=== PATIENT | male | born 1990 | race Caucasian/White ===

== ENCOUNTER 2016-11-21 10:02 | Emergency (ER) | payer BC, MEDICAID ==
[2016-11-21 10:26] VITALS: BP 145/88
--- NOTE | 2016-11-21 11:05 | UC ---
General HPI - HPI Summary HPI Summary: patient is out of medications that he was discharged from the rehab facitlity with. I does not have an appointment until 11/24. after talking with the patient. there is only 2 medications that he actually ran out of Clonodine and Praxosin. I will fill them today to get him to his next appointment. - History of Current Complaint Chief Complaint: UCMedRefill Stated Complaint: MED REFILL Time Seen by Provider: 11/21/16 10:35 Hx Obtained From: Patient Onset/Duration: Sudden Onset, Lasting Days - Allergy/Home Medications Allergies/Adverse Reactions: Allergies Allergy/AdvReac Type Severity Reaction Status Date / Time No Known Allergies Allergy Verified 11/21/16 10:30 Home Medications: Home Medications Gabapentin CAP(*) [Neurontin 400 mg CAP(*)] 400 mg PO TID 11/21/16 [History Confirmed 11/21/16] Naltrexone (NF) 50 mg PO DAILY 11/21/16 [History Confirmed 11/21/16] Naltrexone [Vivitrol] 380 mg IM ONCE 11/21/16 [History Confirmed 11/21/16] OXcarbazepine TAB(*) [Trileptal TAB(*)] 300 mg PO BID 11/21/16 [History Confirmed 11/21/16] Prazosin CAP* [Minipress CAP*] 1 mg PO BEDTIME 11/21/16 [History Confirmed 11/21] QUEtiapine TAB* [SEROquel TAB*] 75 mg PO BEDTIME 11/21/16 [History Confirmed 02/02] Tizanidine HCl [Zanaflex] 2 mg PO TID PRN 11/21/16 [History Confirmed 11/21/16] cloNIDine TAB* [Catapres TAB*] 0.1 mg PO QID PRN 11/21/16 [History Confirmed 02/02] diPHENhydraMINE PO* [Benadryl PO*] 50 - 75 mg PO BEDTIME PRN 11/21/16 [History Confirmed 11/21/16] PMH/Surg Hx/FS Hx/Imm Hx Previously Healthy: Yes Endocrine History Of: Denies: Diabetes Respiratory History Of: Reports: Asthma Psychological History Of: Reports: Anxiety - Surgical History Surgical History: Yes Surgery Procedure, Year, and Place: surgery X2 to left knee, hernia repair. 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 Smoking Status (MU): Light Every Day Tobacco Smoker Type: Cigarettes Amount Used/How Often: 1.5 packs/day Have You Smoked in the Last Year: Yes Household Exposure Type: Cigarettes - Immunization History Most Recent Influenza Vaccination: never received Most Recent Tetanus Shot: 2011 Most Recent Pneumonia Vaccination: never recieved Review of Systems Constitutional: Negative Skin: Negative Eyes: Negative ENT: Negative Respiratory: Negative Cardiovascular: Negative Gastrointestinal: Negative Genitourinary: Negative Motor: Negative Neurovascular: Negative Musculoskeletal: Negative Neurological: Negative Psychological: Other - addition issues All Other Systems Reviewed And Are Negative: Yes Physical Exam Triage Information Reviewed: Yes Appearance: Well-Appearing, No Pain Distress, Well-Nourished Vital Signs: Initial Vital Signs Temp 99.0 F 11/21/16 10:19 Pulse 94 11/21/16 10:19 Resp 16 11/21/16 10:19 BP 145/88 11/21/16 10:19 Pulse Ox 99 11/21/16 10:19 Vital Signs Reviewed: Yes Eye Exam: Normal Eyes: Positive: Conjunctiva Clear ENT Exam: Normal ENT: Positive: Normal ENT inspection, Pharynx normal, Pharyngeal erythema, TMs normal Dental Exam: Normal Neck exam: Normal Neck: Positive: Supple, Nontender, No Lymphadenopathy Respiratory Exam: Normal Respiratory: Positive: Chest non-tender, Lungs clear, Normal breath sounds Cardiovascular Exam: Normal Cardiovascular: Positive: RRR, No Murmur, Pulses Normal Abdominal Exam: Normal Abdomen Description: Positive: Nontender, No Organomegaly, Soft Bowel Sounds: Positive: Present Musculoskeletal Exam: Normal Musculoskeletal: Positive: Strength Intact, ROM Intact, No Edema Neurological Exam: Normal Neurological: Positive: Alert, Muscle Tone Normal Psychological Exam: Normal Skin Exam: Normal Course/Dx - Course Course Of Treatment: hx obtained, exam performed, medications reviewed. 2 prescriptions ordered. - Differential Dx - Multi-Symptom Provider Diagnoses: medication refill. Depression. Anxiety Discharge - Discharge Plan Condition: Stable Disposition: HOME Prescriptions: Prazosin CAP* [Minipress CAP*] 2 mg PO BEDTIME #7 cap cloNIDine TAB* [Catapres TAB*] 0.1 mg PO QID #28 tab Patient Education Materials: Medicine Refill (ED) Referrals: XENIA Iraheta [Primary Care Provider] - Additional Instructions: Please follow up with Mary for continuation of your medications.
== END 2016-11-21 11:15 | disposition home or self-care (01) ==
LOC: UCCORT 10:02
DX: F33.8 Other recurrent depressive disorders (principal); F41.9 Anxiety disorder, unspecified; J45.909 Unspecified asthma, uncomplicated; I10 Essential (primary) hypertension; F17.210 Nicotine dependence, cigarettes, uncomplicated
CPT/HCPCS: 99212; G0463

== ENCOUNTER 2017-09-07 19:25 | Emergency (ER) | payer BC, MEDICAID ==
[2017-09-07] MEDS ORDERED: NS 0.9% 1000 ML* 2,000 ML IV ONE (21:33)
[2017-09-07] MEDS ORDERED: Morphine INJ* 4 MG/ML 1 ML CARPUJECT IV ONE (21:33)
[2017-09-07] MEDS ORDERED: Metoclopramide IV* 5 MG/ML 2 ML VIAL IV ONE (21:33)
[2017-09-07 22:18] LABS: Hematocrit 42 % (42-52); Hemoglobin 13.8 g/dl (14.0-18.0); Mean Corpuscular HGB Conc 33 g/dl (31-36); Mean Corpuscular Hemoglobin 27 pg (27-31); Mean Corpuscular Volume 82 fL (80-94); Mean Platelet Volume 8 um3 (7.4-10.4); Red Blood Count 5.11 10^6/ul (4.0-5.4); Red Cell Distribution Width 15 % (10.5-15); White Blood Count 5.7 10^3/ul (3.5-10.8)
[2017-09-07 22:24] LABS: ALT 101 U/L (7-52); AST 39 U/L (13-39); Albumin 4.4 g/dL (3.2-5.2); Alkaline Phosphatase 63 U/L (34-104); Anion Gap 10 mmol/L (2-11); BUN/Creatinine Ratio 16.7 (8-20); Blood Urea Nitrogen 12 mg/dL (6-24); CO2 Carbon Dioxide 27 mmol/L (22-32); Calcium 9.8 mg/dL (8.6-10.3); Chloride 98 mmol/L (101-111); EGFR African American 171.1 (>60); Globulin 3.8 g/dL (2-4); Glucose 91 mg/dL (70-100); Lipase < 10 U/L (11.0-82.0); Potassium 3.8 mmol/L (3.5-5.0); Sodium 135 mmol/L (133-145); Total Protein 8.2 g/dL (6.4-8.9)
[2017-09-07 22:28] LABS: Troponin I 0.01 ng/mL (<0.04)
[2017-09-08] MEDS ORDERED: Ondansetron TAB* 4 MG ONE (02:32)
[2017-09-08] MEDS ORDERED: Ondansetron ODT TAB* 4 MG SL ONE (02:53)
[2017-09-08] MEDS ORDERED: Ondansetron ODT TAB* 4 MG PO ONE ×2 (02:55→03:04)
[2017-09-08] MEDS ORDERED: Ondansetron TAB* 4 MG PO ONE (02:56)
[2017-09-08] MEDS ORDERED: Pantoprazole TAB (NF) 40 MG TAB PO ONE (03:04)
--- NOTE | 2017-09-08 03:25 | ED ---
Samra Suarez Emily, scribed for Chris Pepe on 09/07/17 at 2155 . Complex/Multi-Sys Presentation - HPI Summary HPI Summary: This patient is a 27 year old M presenting to [facility] with a chief complaint of nausea and vomiting that began 3 days ago. The patient rates the pain 7/10 in severity. Symptoms aggravated by nothing. Symptoms alleviated by nothing. Patient reports nausea, inability to eat or drink (for 2 days), headache, and abd pain. Patient denies fever and diarrhea. PMHx includes gastroparesis and severe headaches. - History Of Current Complaint Chief Complaint: EDNauseaVomitDiarrh Time Seen by Provider: 09/07/17 21:20 Hx Obtained From: Patient Onset/Duration: Sudden Onset, Lasting Days, Still Present Timing: Days Severity Currently: Moderate Severity Initially: Moderate Associated Signs And Symptoms: Positive: Other - Positive nausea, inability to eat or drink (for 2 days), headache, and abd pain. Negative fever and diarrhea - Allergies/Home Medications Allergies/Adverse Reactions: Allergies Allergy/AdvReac Type Severity Reaction Status Date / Time No Known Allergies Allergy Verified 11/21/16 10:30 PMH/Surg Hx/FS Hx/Imm Hx Previously Healthy: No Endocrine/Hematology History: Denies: Hx Diabetes Respiratory History: Reports: Hx Asthma GI History: Reports: Other GI Disorders - says has "cyclical vomiting syndrome" History: Comment Only: Other Problems/Disorders - cyst in kidney Musculoskeletal History: Reports: Hx Back Problems Neurological History: Reports: Hx Headaches - Severe Psychiatric History: Reports: Hx Anxiety, Hx Substance Abuse Denies: Hx Eating Disorder, Hx Suicide Attempt, Hx of Violent Episodes Against Others - Cancer History Hx Chemotherapy: No Hx Radiation Therapy: No Hx Palliative Cancer Treatment: No - Surgical History Surgery Procedure, Year, and Place: surgery X2 to left knee, hernia repair. Patient stated happened a few years ago Infectious Disease History: No Infectious Disease History: Reports: Hx Hepatitis - states Hep C was diagnosed Denies: Hx Clostridium Difficile, Hx Human Immunodeficiency Virus (HIV), Hx of Known/Suspected MRSA, Hx Shingles, Hx Tuberculosis, Hx Known/Suspected VRE, Hx Known/Suspected VRSA, History Other Infectious Disease, Traveled Outside the [place] in Last 30 Days - Family History Known Family History: Negative: Cardiac Disease, Hypertension - Social History Occupation: Unemployed Lives: Alone Alcohol Use: None Substance Use Type: Reports: Heroin, Marijuana, Other Substance Use Comment - Amount & 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 Negative: Diarrhea Positive: Headache All Other Systems Reviewed And Are Negative: Yes Physical Exam Triage Information Reviewed: Yes Vital Signs On Initial Exam: Initial Vitals Temp Pulse Resp BP Pulse Ox 98.7 F 73 16 139/87 98 09/07/17 19:31 09/07/17 19:31 09/07/17 19:31 09/07/17 19:31 09/07/17 19:31 Vital Signs Reviewed: Yes Appearance: Positive: Well-Appearing, No Pain Distress Skin: Positive: Warm, Skin Color Reflects Adequate Perfusion, Dry Head/Face: Positive: Normal Head/Face Inspection Eyes: Positive: EOMI, BISHOP ENT: Positive: Normal ENT inspection Neck: Positive: Supple, Nontender Respiratory/Lung Sounds: Positive: Clear to Auscultation, Breath Sounds Present Cardiovascular: Positive: RRR, Pulses are Symmetrical in both Upper and Lower Extremities Abdomen Description: Positive: Soft, Other: - Diffuse abd tenderness Bowel Sounds: Positive: Present Musculoskeletal: Positive: Normal, Strength/ROM Intact Neurological: Positive: Normal, Sensory/Motor Intact, Alert, Oriented to Person Place, Time Diagnostics - Vital Signs Vital Signs Temp Pulse Resp BP Pulse Ox 09/07/17 19:31 98.7 F 73 16 139/87 98 - Laboratory Lab Results: Lab Results 09/07/17 09/07/17 09/07/17 Range/Units 22:00 22:00 22:00 WBC 5.7 (3.5-10.8) 10^3/ul RBC 5.11 (4.0-5.4) 10^6/ul Hgb 13.8 L (14.0-18.0) g/dl Hct 42 (42-52) % MCV 82 (80-94) fL MCH 27 (27-31) pg MCHC 33 (31-36) g/dl RDW 15 (10.5-15) % Plt Count 281 (150-450) 10^3/ul MPV 8 (7.4-10.4) um3 Neut % (Auto) 55.1 (38-83) % Lymph % (Auto) 37.1 (25-47) % [place] % (Auto) 6.4 (1-9) % Eos % (Auto) 0.7 (0-6) % Baso % (Auto) 0.7 (0-2) % Absolute Neuts (auto) 3.1 (1.5-7.7) 10^3/ul Absolute Lymphs (auto) 2.1 (1.0-4.8) 10^3/ul Absolute Monos (auto) 0.4 (0-0.8) 10^3/ul Absolute Eos (auto) 0 (0-0.6) 10^3/ul Absolute Basos (auto) 0 (0-0.2) 10^3/ul Absolute Nucleated RBC 0 10^3/ul Nucleated RBC % 0.1 INR (Anticoag Therapy) 0.99 (0.89-1.11) APTT 31.8 (26.0-36.3) seconds Sodium 135 (133-145) mmol/L Potassium 3.8 (3.5-5.0) mmol/L Chloride 98 L (101-111) mmol/L Carbon Dioxide 27 (22-32) mmol/L Anion Gap 10 (2-11) mmol/L BUN 12 (6-24) mg/dL Creatinine 0.72 (0.67-1.17) mg/dL Est GFR ( Amer) 171.1 (>60) Est GFR (Non-Af Amer) 133.0 (>60) BUN/Creatinine Ratio 16.7 (8-20) Glucose 91 (70-100) mg/dL Calcium 9.8 (8.6-10.3) mg/dL Total Bilirubin 0.40 (0.2-1.0) mg/dL AST 39 (13-39) U/L ALT 101 H (7-52) U/L Alkaline Phosphatase 63 (34-104) U/L Troponin I 0.01 (<0.04) ng/mL Total Protein 8.2 (6.4-8.9) g/dL Albumin 4.4 (3.2-5.2) g/dL Globulin 3.8 (2-4) g/dL Albumin/Globulin Ratio 1.2 (1-3) Lipase < 10 L (11.0-82.0) U/L Result Diagrams: 09/07/17 22:00 09/07/17 22:00 Lab Statement: Any lab studies that have been ordered have been reviewed, and results considered in the medical decision making process. - Radiology CXR Xray Interpretation: No Acute Changes Radiology Interpretation Completed By: ED Physician - CT Head CT Interpretation Completed By: Radiologist - A CT head read by radiologist reveals normal brain. No acute intracranial abnormality. No hemorrhage. No detectable infarct or mass. Osseous structures are intact. ED physician has reviewed this radiology report and agrees. A/P CT Interpretation Completed By: Radiologist - CT A/P read by radiologist reveals no bowel obstruction, free air, or free fluid. Normal appendix. Negative for diverticulitis or colitis. No urinary tract stone or obstruction. 2.5 cm dense left upper pole renal cyst. Recommend followup. No acute abnormaltities of the liver, spleen, gallbladder pancreas, or adrenal glands. Overall no acute intra-abdominal abnormalities. Status post right hip arthroplasty. ED physician has reviewed this radiology report and agrees. Complex Multi-Symp Course/Dx Assessment/Plan: This patient is a 27 year old M presenting to [facility] with a chief complaint of nausea and vomiting that began 3 days ago. The patient rates the pain 7/10 in severity. Symptoms aggravated by nothing. Symptoms alleviated by nothing. Patient reports nausea, inability to eat or drink (for 2 days), headache, and abd pain. Patient denies fever and diarrhea. PMHx includes gastroparesis and severe headaches. Physical Exam Findings. Diffuse abd tenderness. Medical Decision Making. A CT head read by radiologist reveals normal brain. No acute intracranial abnormality. No hemorrhage. No detectable infarct or mass. Osseous structures are intact. CXR read by ED physician reveals no acute changes. CT A/P read by radiologist reveals no bowel obstruction, free air, or free fluid. Normal appendix. Negative for diverticulitis or colitis. No urinary tract stone or obstruction. 2.5 cm dense left upper pole renal cyst. Recommend followup. No acute abnormaltities of the liver, spleen, gallbladder pancreas, or adrenal glands. Overall no acute intra- abdominal abnormalities. Status post right hip arthroplasty. Test results within normal limits. In ED course pt received fluids, Morphine, and Zofran. Patient will be discharged with prescription for Protonix and follow up from PCP. The patient is agreeable with this plan. - Diagnoses Differential Diagnoses/HQI/PQRI: Other - diverticulitis, appendicitis,uti, headache, intracranial bleeding. Provider Diagnoses: Abdominal pain, Headache Discharge - Discharge Plan Condition: Stable Disposition: HOME Prescriptions: Pantoprazole TAB (NF) [Protonix TAB (NF)] 40 mg PO DAILY #30 tab Patient Education Materials: Abdominal Pain (ED), General Headache (ED), Pantoprazole (By mouth) Referrals: XENIA Iraheta [Primary Care Provider] - 3 Days The documentation as recorded by the Samra marie Emily accurately reflects the service I personally performed and the decisions made by Afshin currie Emmanuel.
[2017-09-08 03:54] VITALS: BP 122/80
[2017-09-08] MEDS ORDERED: Omeprazole CAP* 20 MG PO ONE (04:00)
--- NOTE | 2017-09-08 08:41 | RAD ---
INDICATION: Nausea and vomiting x2 days COMPARISON: Most recent comparison chest x-rays dated August 10, 2009 TECHNIQUE: PA and lateral views of the chest were obtained. FINDINGS: The heart and mediastinum are normal in size and contour. The lungs are grossly clear. There is no evidence of large pleural effusion. Visualized bones are normal for the patient's age. There is no radiographic evidence of free air beneath the diaphragm IMPRESSION: No radiographic evidence of acute cardiopulmonary disease.
--- NOTE | 2017-09-08 08:42 | RAD ---
INDICATION: Headache COMPARISON: None. TECHNIQUE: Contiguous axial sections of the brain were obtained from the skull base to the vertex without contrast. FINDINGS: The ventricles, cisterns and sulci are within normal limits. The frank-white matter differentiation is adequately maintained and there is no sulcal effacement. No significant focal abnormality or mass effect is present. There is no evidence for intracranial hemorrhage. No significant focal osseous abnormality is present. The visualized portion of the paranasal sinuses and mastoid air cells appear clear. IMPRESSION: Normal CT of the brain.
--- NOTE | 2017-09-08 10:47 | RAD ---
CLINICAL HISTORY: Abdominal pain and vomiting COMPARISON: None TECHNIQUE: Noncontrast CT examination of the abdomen and pelvis from the lung bases through the initial tuberosities. FINDINGS: VISUALIZED LUNG BASES: The visualized lung bases are grossly clear. There is no pleural effusion. ABDOMEN AND PELVIS: Evaluation of the solid organs and vasculature is limited without intravenous contrast. The liver, spleen, pancreas and adrenal glands are grossly normal in appearance. The gallbladder is normal. At the upper pole the left kidney there is a hyperattenuating 1.9 cm structure. The kidneys are normal in appearance without focal mass, calcification or signs of hydronephrosis. The small and large bowel are not distended.There is highly questionable circumferential thickening of the terminal ileum wall measuring 5 mm in thickness (coronal image 40 and axial image 68). The patient's normal appendix is identified in the right lower quadrant with a small amount of gas in the lumen measuring just under 6 mm in diameter (coronal image 43). The gas and stool-filled colon appears normal. A top normal celiac lymph node (axial image 23 and coronal image 48) measures 1 cm in greatest dimension. The clinical significance of this is indeterminate. There is no retroperitoneal lymphadenopathy or lymphadenopathy of the mesenteric root. The pelvic viscera is normal in appearance. The abdominal aorta and iliac arteries are normal in course and diameter. The patient's right hip prosthesis is anatomically aligned.There are no sinister bone lesions. IMPRESSION: 1. Highly questionable mild wall thickening of the terminal ileum which could be due to infectious or inflammatory etiologies. Alternatively this is simply the appearance of underdistention. 2. There is a top normal celiac lymph node of indeterminate clinical significance. 3. At the upper pole the left kidney there is a hyper dense structure measuring 1.9 cm in greatest dimension. This can be further characterized on a nonemergent basis with renal ultrasound.
== END 2017-09-08 03:54 | disposition home or self-care (01) ==
LOC: ED 19:25
DX: R51 Headache (principal); R10.9 Unspecified abdominal pain; N28.1 Cyst of kidney, acquired
CPT/HCPCS: 36415; 70450; 71020; 74176; 80053; 83690; 84484; 85025; 85610; 85730; 96374; 96375; 99282; A9270-GY; J2270; J2765